=== PATIENT | female | born 1985 | race Caucasian/White ===

== ENCOUNTER 2017-01-25 15:41 | Emergency (ER) | payer OTHER ==
[~2017-01-25] VITALS: Ht 157.5 cm; Wt 76.7 kg
[2017-01-25 15:47] VITALS: Ht 157.5 cm; Wt 76.7 kg
[2017-01-25 16:54] VITALS: BP 139/83
== END 2017-01-25 16:54 | disposition home or self-care (01) ==
LOC: ED 15:41
DX: H66.91 Otitis media, unspecified, right ear (principal)
CPT/HCPCS: J1885

== ENCOUNTER 2017-04-20 00:17 | Emergency (ER) | payer OTHER ==
[~2017-04-20] VITALS: Ht 154.9 cm; Wt 78.0 kg
[2017-04-20 00:27] VITALS: Ht 154.9 cm; Wt 78.0 kg
[2017-04-20 00:59] VITALS: BP 116/80
== END 2017-04-20 00:59 | disposition home or self-care (01) ==
LOC: ED 00:17
DX: J04.0 Acute laryngitis (principal); M32.9 Systemic lupus erythematosus, unspecified

== ENCOUNTER 2017-06-01 04:10 | Emergency (ER) | payer OTHER ==
[~2017-06-01] VITALS: Ht 154.9 cm; Wt 80.9 kg
[2017-06-01 04:24] VITALS: Ht 154.9 cm; Wt 80.9 kg
[2017-06-01 05:14] LABS: BASOPHIL % 0.4 % (0-2); PLATELET COUNT 267 x10^3mcL (130-400); RED CELL DISTRIBUTION WIDTH 12.5 % (11.5-14.5)
[2017-06-01 05:28] LABS: ALBUMIN 3.6 g/dL (3.4-5.0); ALKALINE PHOSPHATASE 84 U/L (46-116); ALT/SGPT 21 U/L (14-59); AST/SGOT 17 U/L (15-37); BILIRUBIN TOTAL 0.25 mg/dL (0.20-1.00); CALCIUM 8.5 mg/dL (8.5-10.1); CARBON DIOXIDE 24.3 mmol/L (21-32); CHLORIDE SERUM 104 mmol/L (98-107); CREATININE SERUM 0.6 mg/dL (0.6-1.0); GFR1 > 60 mL/min; GLUCOSE SERUM 116 mg/dL (74-106); SODIUM SERUM 130 mmol/L (136-145); TOTAL PROTEIN, SERUM 7.2 g/dL (6.4-8.2)
[2017-06-01 05:33] LABS: POTASSIUM SERUM 2.9 mmol/L (3.5-5.1)
[2017-06-01 09:43] VITALS: BP 124/71
== END 2017-06-01 09:43 | disposition home or self-care (01) ==
LOC: ED 04:10
PROVIDERS: Emergency Medicine
DX: R07.9 Chest pain, unspecified (principal); E87.6 Hypokalemia
CPT/HCPCS: 85378; J1885; J2270; J3480; J7030; Q0092